=== PATIENT | female | born 1935 | race Caucasian/White ===

== ENCOUNTER 2017-06-18 11:41 | Outpatient (CLI) | payer MEDICARE | END 2017-06-18 11:42 | disposition home or self-care (01) | LOC: BICMAMMO 11:41 | PROVIDERS: ATTEND Internal Medicine | DX: Z12.31 Encounter for screening mammogram for malignant neoplasm of breast (principal) | CPT/HCPCS: 77063; 77067 ==

== ENCOUNTER 2017-08-13 10:21 | Emergency (ER) | payer MEDICARE ==
--- NOTE | 2017-08-13 11:27 | RAD ---
TWO VIEWS LEFT HIP: Comparison: None. History: Left hip pain. FINDINGS: Two views of the left hip shows no evidence of acute fracture or dislocation. No significant degenera tive changes are seen. No soft tissue swelling is seen. IMPRESSION: Unremarkable exam. POS: [facility]
[2017-08-13] MEDS ORDERED: Cyclobenzaprine 10 MG TAB ONE (12:02)
[2017-08-13] MEDS ORDERED: Ondansetron ODT 4 MG TAB ONE (12:02)
[2017-08-13] MEDS ORDERED: Ketorolac Tromethamine 30 MG/ML VIAL ONE (12:02)
[2017-08-13] MEDS ORDERED: Morphine 4 MG/ML VIAL ONE (13:11)
--- NOTE | 2017-08-13 14:36 | CT ---
CT PELVIS WITHOUT CONTRAST: COMPARISON: None. HISTORY: Left hip pain. The pain was so bad the patient could not get out of bed this morning. TECHNIQUE: Multiple contiguous axial images were obtained in a CT of the pelvis without contrast. Sagittal and coronal reformats were performed. FINDINGS: No fracture or dislocation is seen. Mild degenerative changes are seen in both hips. There is scattered diverticula in the colon. The patient is status post hysterectomy. The other vis ualized pelvic structures are unremarkable. IMPRESSION: 1. Diverticulosis. 2. No evidence of acute osseous abnormality of the bones of the pelvis or hips. POS: [facility]
[2017-08-13] MEDS ORDERED: Gabapentin 300 MG CAP PO SCH (15:15)
== END 2017-08-13 15:35 | disposition home or self-care (01) ==
LOC: ERS 10:21
DX: M25.552 Pain in left hip (principal); E03.9 Hypothyroidism, unspecified; I10 Essential (primary) hypertension; Z85.3 Personal history of malignant neoplasm of breast
CPT/HCPCS: 72192; 96372; J1885; J2270; Q0162

== ENCOUNTER 2017-08-30 10:18 | Outpatient (CLI) | payer MEDICARE ==
--- NOTE | 2017-08-30 13:11 | MRI ---
MRI LUMBAR SPINE WITHOUT CONTRAST: HISTORY: Lumbar radiculopathy. COMPARISON: 07/09/2015 TECHNIQUE: An MRI of the lumbar spine is performed without intravenous Gadolinium administration. Multisequenti al, multiplanar imaging is performed. FINDINGS: There is rightward curvature of the lumbar spine with apex at the L2 vertebral body level. There is T1 marrow signal hypointensity with associated T2 and STIR hyperintensity at the left aspect of the L 1-L2 disk space. There are type 2 modic changes at L2-L3. No STIR evidence of edema due to fracture . There is intrinsic T1 and T2 hyperintensity at L5, compatible with a hemangioma. Symmetric signal intensity of the psoas muscles. T2 hyperintensity of the right renal cortex, too-sm [id number]. Cyst is favored. There is a stable T2 hyperintensity involving the right neural foramen at S2, compatible with a large Tarlov cyst, unchanged. Stable tarlov cyst in the right foramen at T12-L1. The conus medullaris terminates at the superior aspect of L1. T12-L1: Desiccation with mild loss of disk space height. No significant central canal stenosis or f oraminal narrowing. L1-L2: Desiccation with severe loss of disk space height. Small left and right paracentral disk bul ges with disk material encroaching upon both subarticular zones. Partial obscuration of the bilatera l traversing L3 nerve roots. Mild posterior element hypertrophy. Overall, no significant central ca nal stenosis. Moderate right and severe left foraminal narrowing. L2-L3: Desiccation with severe loss of disk space height. Generalized disk bulge with mild central canal stenosis. Mild right and moderate left foraminal narrowing. L3-L4: Disk hydration with mild loss of disk space height. No significant central canal stenosis. Mild right and mild to moderate left foraminal narrowing. L4-L5: Desiccation with mild loss of disk space height. No significant posterior disk abnormality. Mild facet hypertrophy. No significant central canal stenosis. There is moderate right and mild le ft foraminal narrowing. L5-S1: Disk dehydration with mild loss of disk space height. No significant central canal stenosis. There is bilateral trcaf-lffslst-gqws-left facet hypertrophy. Mild right and minimal left foramina l narrowing. IMPRESSION: 1. Stable scoliotic curvature of the lumbar spine. 2. Type 1 and type 2 modic changes involving the L1-L2 and L2-L3 disk spaces, respectively. 3. Extensive degenerative change in the lumbar spine, as detailed above. 4. 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 POS: [facility]
== END 2017-08-30 10:19 | disposition home or self-care (01) ==
LOC: TBSIIMAG 10:18
PROVIDERS: ATTEND Neurological Surgery
DX: M47.26 Other spondylosis with radiculopathy, lumbar region (principal); M51.16 Intervertebral disc disorders with radiculopathy, lumbar region; M48.061 Spinal stenosis, lumbar region without neurogenic claudication; M99.83 Other biomechanical lesions of lumbar region; M47.27 Other spondylosis with radiculopathy, lumbosacral region; M41.9 Scoliosis, unspecified; G96.19 Other disorders of meninges, not elsewhere classified
CPT/HCPCS: 72148

== ENCOUNTER 2018-06-19 09:51 | Outpatient (CLI) | payer MEDICARE | END 2018-06-19 09:52 | disposition home or self-care (01) | LOC: BICMAMMO 09:51 | PROVIDERS: ATTEND Internal Medicine | DX: Z12.31 Encounter for screening mammogram for malignant neoplasm of breast (principal); N64.89 Other specified disorders of breast; Z85.3 Personal history of malignant neoplasm of breast | CPT/HCPCS: 77063; 77067 ==

== ENCOUNTER 2019-04-08 09:27 | Outpatient (CLI) | payer MEDICARE ==
--- NOTE | 2019-04-08 09:49 | RAD ---
EXAM: Chest 2 views: HISTORY: Weight loss COMPARISON: None. FINDINGS: There is a normal-sized cardiomediastinal silhouette. There is no evidence of consolidation, mass, or pleural effusion. There is scoliotic curvature of the spine. IMPRESSION: No evidence of acute cardiopulmonary disease
== END 2019-04-08 09:28 | disposition home or self-care (01) ==
LOC: BICRAD 09:27
PROVIDERS: ATTEND Internal Medicine
DX: R63.4 Abnormal weight loss (principal)
CPT/HCPCS: 36415; 71046; 80053; 81001; 84439; 84443; 85025; 87086

== ENCOUNTER 2019-06-20 09:40 | Outpatient (CLI) | payer MEDICARE ==
--- NOTE | 2019-06-20 10:06 | MMO ---
Bilateral MAMMO Bilat Screen [facility]. CLINICAL HISTORY: Patient is 83 years old and is seen for screening. The patient has no family history of breast cancer. The patient has a history of right Lumpectomy in 06/03 - malignancy and right Radiation Therapy in 06/03. VIEWS: The views performed were: bilateral craniocaudal with tomosynthesis and bilateral mediolateral oblique with tomosynthesis. FILMS COMPARED: The present examination has been compared to prior imaging studies performed at [facility] on 06/14/2015, 06/15/2016, 06/18/2017 and 06/19/2018. This study has been interpreted with the assistance of computer-aided detection. MAMMOGRAM FINDINGS: There are scattered fibroglandular densities. There are stable post operative changes seen in the right breast. There are no suspicious masses, suspicious calcifications, or new areas of architectural distortion. IMPRESSION: THERE IS NO MAMMOGRAPHIC EVIDENCE OF MALIGNANCY. A ROUTINE FOLLOW-UP MAMMOGRAM IN 1 YEAR IS RECOMMENDED. THE RESULTS OF THIS EXAM WERE SENT TO THE PATIENT. ACR BI-RADS Category 2 - Benign finding MAMMOGRAPHY NOTE: 1. A negative mammogram report should not delay a biopsy if a dominant of clinically suspicious mass is present. 2. Approximately 10% to 15% of breast cancers are not detected by mammography. 3. Adenosis and dense breasts may obscure an underlying neoplasm. Reported by: MESSI SCALES MD Electonically Signed: [id number]
== END 2019-06-20 09:41 | disposition home or self-care (01) ==
LOC: BICMAMMO 09:40
PROVIDERS: ATTEND Internal Medicine
DX: Z12.31 Encounter for screening mammogram for malignant neoplasm of breast (principal); Z98.890 Other specified postprocedural states; Z85.3 Personal history of malignant neoplasm of breast
CPT/HCPCS: 77063; 77067

== ENCOUNTER 2020-06-21 08:39 | Outpatient (CLI) | payer MEDICARE ==
--- NOTE | 2020-06-21 10:40 | MMO ---
Bilateral MAMMO Bilat Screen [facility]. CLINICAL HISTORY: Patient is 84 years old and is seen for screening. The patient has no family history of breast cancer. The patient has a history of right Lumpectomy in 06/03 - malignancy and right Radiation Therapy in 06/03. VIEWS: The views performed were: bilateral craniocaudal with tomosynthesis and bilateral mediolateral oblique with tomosynthesis. FILMS COMPARED: The present examination has been compared to prior imaging studies performed at [facility] on 06/15/2016, 06/18/2017, 06/19/2018 and 06/20/2019. This study has been interpreted with the assistance of computer-aided detection. MAMMOGRAM FINDINGS: There are scattered fibroglandular densities. There are stable right post-operative changes. There are no suspicious masses, suspicious calcifications, or new areas of architectural distortion. IMPRESSION: THERE IS NO MAMMOGRAPHIC EVIDENCE OF MALIGNANCY. A ROUTINE FOLLOW-UP MAMMOGRAM IN 1 YEAR IS RECOMMENDED. THE RESULTS OF THIS EXAM WERE SENT TO THE PATIENT. ACR BI-RADS Category 2 - Benign finding MAMMOGRAPHY NOTE: 1. A negative mammogram report should not delay a biopsy if a dominant of clinically suspicious mass is present. 2. Approximately 10% to 15% of breast cancers are not detected by mammography. 3. Adenosis and dense breasts may obscure an underlying neoplasm. Reported by: SHAGGY BARNETT MD Electonically Signed: [id number]
== END 2020-06-21 08:40 | disposition home or self-care (01) ==
LOC: BICMAMMO 08:39
PROVIDERS: ATTEND Internal Medicine
DX: Z12.31 Encounter for screening mammogram for malignant neoplasm of breast (principal); Z98.890 Other specified postprocedural states; Z92.3 Personal history of irradiation
CPT/HCPCS: 77063; 77067